=== PATIENT | male | born 1930 | race Caucasian/White ===

== ENCOUNTER 2018-08-13 09:11 | Inpatient (IN) | payer OTHER, MEDICAID ==
[~2018-08-13] VITALS: Ht 167.6 cm; Wt 64.9 kg
[~2018-08-13 09:11] MED LIST: CETI-101 PO; DONE10TA44 PO; FERR1GRA MC; MEMA5TAB PO; METO50TA7 PO; MIRT7.5T11 PO; OMEP20CA10 PO
--- NOTE | 2018-08-13 09:15 | NUR ---
Pt brought in by BLS ambulance C/O left arm pain since this morning. Pt resides at a SNF and staff stated the pt was more difficult to wake up than usual. Staff denies any trauma/ fall and states he is acting normal. Pt has hx of dementia and TIA unable to verbalize pain scale. Pt attached to monitor and will continue to monitor.
--- NOTE | 2018-08-13 09:15 | NUR ---
Placed in room 2.
[2018-08-13 09:17] VITALS: BP_SYST 158
--- NOTE | 2018-08-13 09:30 | NUR ---
ER Dr. May at bedside examining patient.
[2018-08-13 10:21] LABS: ANION GAP 7 (5-15); CALCIUM 8.9 mg/dL (8.4-11.0); CHLORIDE 106 mmol/L (98-107); CREATININE 1.43 mg/dL (0.55-1.30); GLUCOSE 89 mg/dL (70-99); POTASSIUM 4.3 mmol/L (3.5-5.1); SODIUM SERUM 140 mmol/L (136-145); UREA NITROGEN, BLOOD 19 mg/dL (8-21)
[2018-08-13 10:26] LABS: ALANINE AMINOTRANSFERASE 20 U/L (12-78); ALBUMIN 2.8 g/dL (3.4-4.8); ASPARTATE AMINOTRANSFERASE 25 U/L (10-37); TOTAL BILIRUBIN 0.5 mg/dL (0.0-1.0)
[2018-08-13 10:31] LABS: HEMATOCRIT 28.5 % (36-54); HEMOGLOBIN 8.8 g/dL (14.0-18.0); MEAN CORPUSCULAR HEMOGLOBIN 25 pg (27-31); MEAN CORPUSCULAR HGB CONC 31 % (32-36); MEAN CORPUSCULAR VOLUME 81 fL (79.0-98.0); RED BLOOD CELL COUNT(AUTO) 3.52 MIL/uL (4.2-6.2); RED CELL DISTRIBUTION WIDTH 19.4 % (9.0-15.0); WHITE BLOOD COUNT (AUTO) 9.2 K/uL (4.8-10.8)
[2018-08-13] MEDS ORDERED: RANI300T4 PO (10:31)
[2018-08-13] MEDS ORDERED: MOM PO (10:31)
[2018-08-13] MEDS ORDERED: ROSU10TA PO (10:31)
[2018-08-13] MEDS ORDERED: OMEP20CA10 PO (10:31)
[2018-08-13] MEDS ORDERED: DOCU250C71 (10:31)
[2018-08-13] MEDS ORDERED: METO50TA7 PO (10:31)
[2018-08-13] MEDS ORDERED: MIRT15TA7 PO (10:31)
[2018-08-13] MEDS ORDERED: MEMA5TAB PO (10:31)
[2018-08-13] MEDS ORDERED: BISA-79 PO (10:31)
[2018-08-13] MEDS ORDERED: MELA3TAB PO (10:31)
[2018-08-13] MEDS ORDERED: ACET325C4 PO (10:31)
[2018-08-13] MEDS ORDERED: DONE10TA37 PO (10:31)
[2018-08-13 10:34] LABS: PLATELET COUNT (AUTO) 97 K/uL (130-430)
--- NOTE | 2018-08-13 10:45 | NUR ---
Pt is resting quietly, family at bedside. Analia daughter in law gave contact information [phone].
--- NOTE | 2018-08-13 10:59 | NUR ---
ER Dr. May at bedside examining patient and talking with family.
[2018-08-13 11:29] LABS: ATYPICAL LYMPHOCYTES % 0 % (0-0); BAND % (MANUAL) 0 % (0-6); LYMPHOCYTES % (MANUAL) 39 % (20-46); MONOCYTES % (MANUAL) 4 % (0-11)
[2018-08-13 11:30] LABS: BASOPHILS % (MANUAL) 0 % (0-2); EOSINOPHILS % (MANUAL) 34 % (0-7)
--- NOTE | 2018-08-13 11:30 | NUR ---
Pt is becoming agitated and attempting to get out of bed. I attempted to reorient the patient and assisted him back to bed in position of comfort. Bed was lowered. Will continue to monitor, Dr. May informed of situation.
--- NOTE | 2018-08-13 12:30 | NUR ---
Pt is resting quietly in bed, family at bedside with patient. Will continue to monitor.
[2018-08-13] MEDS ORDERED: LORazepam 2 MG/ML VIAL (FOR ER USE) IVP ONE (12:45)
--- NOTE | 2018-08-13 13:30 | NUR ---
Pt's vital signs are stable and does not appear to be in distress at this time. Will continue to monitor pt.
[2018-08-13 13:44] LABS: BILIRUBIN,URINE NEGATIVE (NEGATIVE); BLOOD, URINE NEGATIVE (NEGATIVE); CLARITY/URINE CLEAR (CLEAR); COLOR,URINE YELLOW (YELLOW); GLUCOSE,URINE NEGATIVE (NEGATIVE); KETONES,URINE NEGATIVE (NEGATIVE); LEUKOCYTE ESTERASE ,URINE NEGATIVE (NEGATIVE); NITRITE, URINE NEGATIVE (NEGATIVE); PROTEIN URINE NEGATIVE (NEGATIVE); UROBILINOGEN,URINE 0.2 (0.2-1.0)
--- NOTE | 2018-08-13 14:30 | NUR ---
Pt laying in bed will continue to monitor for any change in condition.
--- NOTE | 2018-08-13 15:30 | NUR ---
ER Dr. May at bedside discussing admission to hospital with patient and family.
--- NOTE | 2018-08-13 15:45 | NUR ---
Admission: Received from ER on a gurney with diagnosis of Altered Level of Consciousness. Asleep when received.
--- NOTE | 2018-08-13 15:50 | NUR ---
Patient will be admitted to care of [facility]. Admitted to telemetry unit. Will go to room 104B. Belongings list completed. Summary report printed. Report will be given at bedside.
--- NOTE | 2018-08-13 15:55 | NUR ---
Notes patient received in stretcher from ER, patient is awake and alert at this time, patient states he is hungry, no signs of distress or pain is noted at this time, assessment completed, family at bedside, safety precautions in place, educated patient and family char conveyor tender light system and plan of care, patient has pacemaker with heart rate of 61, vital signs are stable.
[2018-08-13 16:03] VITALS: BP_SYST 149
[2018-08-13] MEDS ORDERED: BISACODYL 5 MG TABLET.DR (DULCOLAX) PO PRN (17:30)
[2018-08-13] MEDS ORDERED: MILK OF MAGNESIA 30 ML UDC PO PRN (17:30)
--- NOTE | 2018-08-13 17:49 | NUR ---
Cardiac consult called: for Dr. Briseno, regarding hear murmur, ordered by Dr. Renteria, spoke with Alessia.
--- NOTE | 2018-08-13 17:50 | NUR ---
Notes Dr. Renteria at bedside seeing patient, patient is sleeping at this time, IVF started, PICC line infusing well, no signs of distress or pain noted, will continue to monitor, family at bedside, safety precautions in place, bed in lowest position, call light within reach.
--- NOTE | 2018-08-13 17:51 | NUR ---
Neuro consult called: for Dr. Chen, regarding ALOC, ordered by Dr. Renteria, spoke with Marysol.
--- NOTE | 2018-08-13 18:27 | NUR ---
Closing note patient resting in bed, family is at bedside, IVF infusing well, no signs of pain or distress is noted at this time, will endorse report to oncoming nurse, SCDs applied, all needs were met throughout shift, safety precautions in place, bed in lowest position, bed alarm on, call light within reach.
[2018-08-13] MEDS ORDERED: ACETAMINOPHEN 325 MG TABLET PO PRN (19:30)
--- NOTE | 2018-08-13 20:35 | NUR ---
INITIAL NOTE AT INITIAL ASSESSMENT, PATIENT IS RESTING IN BED, STABLE, NO SIGNS OF RESPIRATORY DISTRESS. PATIENT VERBALIZES NO PAIN. PLAN OF CARE FOR THE EVENING IS COMMUNICATED WITH THE PATIENT. CALL LIGHT- TEACH BACK IS SUCCESSFUL. BED IS LOCKED, ALARMED, AND AT THE LOWEST LEVEL. FALL AND SAFETY PRECAUTIONS WILL BE IN PLACE THROUGHOUT THE SHIFT.
[2018-08-13] MEDS ORDERED: ROSUVASTATIN CALCIUM 5 MG/TAB (CRESTOR) PO SCH (21:00)
[2018-08-13] MEDS: DOCUSATE SODIUM 250 MG CAPSULE PO SCH (22:33)
[2018-08-13] MEDS: MEMANTINE HCL 5 MG TABLET PO SCH (22:33)
[2018-08-13] MEDS: DONEPEZIL HCL 5 MG TABLET (ARICEPT) PO SCH (22:33)
[2018-08-13] MEDS: ATORVASTATIN 20 MG TABLET PO SCH (22:33)
[2018-08-13] MEDS: MIRTAZAPINE 15 MG TABLET PO SCH (22:33)
--- NOTE | 2018-08-13 22:33 | NUR ---
NOTE PATIENT IS RESTLESS, STABLE, NO SIGNS OF RESPIRATORY DISTRESS. PATIENT HAS BEEN REQUESTING JELLO, WATER, AND HELP TO PEE. CALL LIGHT WITHIN REACH. BED IS LOCKED, ALARMED, AND AT THE LOWEST LEVEL.
[2018-08-13] MEDS: PANTOPRAZOLE SODIUM 40 MG TAB PO SCH (22:34)
--- NOTE | 2018-08-13 23:40 | NUR ---
BLADDER SCAN BLADDER SCAN SHOWS LESS THAN 300 MLS RETENTION AT THIS TIME, NO RENTERIA PLACEMENT NECESSARY PER MD ORDERS.
--- NOTE | 2018-08-14 00:20 | NUR ---
PATIENT VOMITED NOTE AT THIS TIME, PATIENT HAS THROWN UP, HE IS STILL ANXIOUS AT THIS TIME WELL AND CONTINUES TO YELL FOR MORE TO EAT AND DRINK. MD WILL BE PAGED IMMEDIATELY FOR ORDERS FOR PRN ANXIETY AND NAUSEA. STAFF WILL STAY AT BEDSIDE WITH PATIENT UNTIL PATIENT IS CLEANED, UP, REPOSITIONED, AND NO LONGER ANXIOUS. HE IS STABLE, NO SIGNS OF RESPIRATORY DISTRESS.
--- NOTE | 2018-08-14 00:25 | NUR ---
COMMUNICATION WITH DR. ALF GUEVARA HAS CALLED BACK AT THIS TIME, HE HAS GIVEN ORDERS FOR ZOFRAN 4MG IVP [id number] PRN FOR NAUSEA AND VOMITING, AND ATIVAN 0.5 MG IVP [id number] PRN FOR ANXIETY AND AGITATION. ORDERS WERE READ, BACK, VERIFIED, AND ENTERED. WILL BE ADMINISTERED TO PATIENT SOON PHARMACY HAS APPROVED.
[2018-08-14] MEDS ORDERED: LORazepam 2 MG/ML VIAL IVP PRN (00:30)
[2018-08-14] MEDS ORDERED: ONDANSETRON HCL 4 MG/2 ML VIAL IVP PRN (00:30)
[2018-08-14 00:47] VITALS: BP_SYST 153
[2018-08-14] MEDS: LORazepam 2 MG/ML VIAL IVP PRN ×2 (00:52→20:22)
--- NOTE | 2018-08-14 02:18 | NUR ---
NOTE PATIENT IS RESTING IN BED, STABLE, NO SIGNS OF RESPIRATORY DISTRESS. HE HAS BEEN LESS RESTLESS BUT STILL YELLING AT TIMES FOR HELP WITH URINAL INSTEAD OF USING BED ALARM.BED IS LOCKED, ALARMED, AND AT THE LOWEST LEVEL.
--- NOTE | 2018-08-14 02:49 | NUR ---
OPENING NOTE RECEIVED PT REPORT FROM DAY SHIFT NURSE AT BEDSIDE. FAMILY AT BEDSIDE. PT IS AOX2, RESTING IN BED WITH EYES OPEN. CHEST RISE EVEN AND UNLABORED. NO SOB NOTED, NO DISTRESS NOTED. NO COMPLAINTS OF PAIN AT THIS TIME. PT IS [place] AND SPEAKS MOSTLY [place]OD[place]ISM, ABLE TO UNDERSTAND SOME [place] AND ABLE TO RESPOND PRETTY WELL. PT HAS ADIS PICC LINE, IVF INFUSING WELL. IV CLEAN, DRY AND INTACT. SKIN IS CLEAN, DRY AND INTACT. URINAL AT BEDSIDE. PT TRIES TO GET OUT OF BED AT TIMES, FAMILY WAS ABLE TO SPEAK TO PT AND REINFORCE PT SAFETY AND USE OF BED ALARM AND CALL LIGHT. PT AND FAMILY EDUCATE ON SAFETY MEASURES. PT ORIENTED TO HOSPITAL ROOM, PT VERBALIZED UNDERSTANDING. PT INSTRUCTED HOW TOT USE CALL LIGHT AND ROOM PHONE TO CALL FOR ASSISTANCE. PT VERBALIZED UNDERSTANDING. SAFETY MEASURES IN PLACE. CALL LIGHT AND ROOM PHONE WITHIN REACH, BED IN LOWEST POSITION, BED RAILS UP X3, BED ALARM ON, BEDSIDE TABLE WITHIN REACH, BED WHEELS LOCKED. NO NEEDS AT THIS TIME. WILL MONITOR PT AND CONTINUE POC.
[2018-08-14] MEDS: D5/0.45 NS 1,000 ML IV SCH ×3 (03:30→23:31)
--- NOTE | 2018-08-14 04:15 | NUR ---
NOTE PATIENT IS SLEEPING, STABLE, NO SIGNS OF RESPIRATORY DISTRESS. CALL LIGHT WITHIN REACH. BED IS LOCKED, ALARMED, AND AT THE LOWEST LEVEL.
--- NOTE | 2018-08-14 05:41 | NUR ---
NOTE PATIENT IS SLEEPING, STABLE, NO SIGNS OF RESPIRATORY DISTRESS. CALL LIGHT WITHIN REACH. BED IS LOCKED, ALARMED, AND AT THE LOWEST LEVEL.
--- NOTE | 2018-08-14 06:42 | NUR ---
CLOSING NOTE PATIENT IS SLEEPING, STABLE, NO SIGNS OF RESPIRATORY DISTRESS. CALL LIGHT WITHIN REACH. BED IS LOCKED, ALARMED, AND AT THE LOWEST LEVEL. FALL AND SAFETY PRECAUTIONS HAVE BEEN IN PLACE THROUGHOUT THE SHIFT. WILL CONTINUE TO MONITOR UNTIL SHIFT REPORT IS GIVEN AT BEDSIDE TO AM NURSE.
--- NOTE | 2018-08-14 07:54 | NUR ---
AM notes Received report. Patient is sleeping in bed. Breathing is even and unlabored on room air. Shows no signs of distress. Bed is in the lowest position, bed alarm is on, and call light is with the patient.
[2018-08-14 08:00] VITALS: BP_SYST 113
[2018-08-14 08:13] LABS: ALANINE AMINOTRANSFERASE 20 U/L (12-78); ALBUMIN 2.5 g/dL (3.4-4.8); ANION GAP 7 (5-15); ASPARTATE AMINOTRANSFERASE 31 U/L (10-37); CHLORIDE 105 mmol/L (98-107); FREE T4 (FREE THYROXINE) 0.5 ng/dL (0.6-1.6); GLUCOSE 115 mg/dL (70-99); POTASSIUM 4.2 mmol/L (3.5-5.1); SODIUM SERUM 138 mmol/L (136-145); THYROID STIMULATING HORMONE 0.96 uIu/mL (0.34-4.82); TOTAL BILIRUBIN 0.5 mg/dL (0.0-1.0); UREA NITROGEN, BLOOD 20 mg/dL (8-21)
[2018-08-14 08:25] LABS: BASOPHILS % (AUTO) 0.3 % (0.0-2.0); EOSINOPHILS # (AUTO) 2.7 K/uL (0.0-0.4); HEMOGLOBIN 8.4 g/dL (14.0-18.0)
[2018-08-14 08:32] LABS: EOSINOPHILS % (AUTO) 27.4 % (0.0-4.0); HEMATOCRIT 27.1 % (36-54); LYMPHOCYTES # (AUTO) 3.6 K/uL (1.0-5.5); LYMPHOCYTES % (AUTO) 36.9 % (20.5-51.5); MEAN CORPUSCULAR HEMOGLOBIN 25 pg (27-31); MEAN CORPUSCULAR HGB CONC 31 % (32-36); MEAN CORPUSCULAR VOLUME 81 fL (79.0-98.0); MONOCYTES # (AUTO) 0.8 K/uL (0.0-1.0); NEUTROPHILS # (AUTO) 2.7 K/uL (1.8-7.7); PLATELET COUNT (AUTO) 87 K/uL (130-430); RED BLOOD CELL COUNT(AUTO) 3.33 MIL/uL (4.2-6.2); RED CELL DISTRIBUTION WIDTH 19.7 % (9.0-15.0); WHITE BLOOD COUNT (AUTO) 9.8 K/uL (4.8-10.8)
[2018-08-14 08:34] LABS: TOTAL IRON BIND. CAPACITY 305 ug/dL (250-450)
[2018-08-14] MEDS ORDERED: OMEPRAZOLE 20 MG CAPSULE.DR (PriLOSEC) PO SCH (09:00)
[2018-08-14] MEDS: FAMOTIDINE 20 MG TABLET PO SCH (09:14)
[2018-08-14] MEDS: DOCUSATE SODIUM 250 MG CAPSULE PO SCH ×2 (09:14→20:22)
[2018-08-14] MEDS: MEMANTINE HCL 5 MG TABLET PO SCH ×2 (09:14→20:22)
[2018-08-14] MEDS: NEPHROVITE, (FOLIC ACID/VITAMIN B COMP W-C 1 TAB) PO SCH (09:15)
[2018-08-14] MEDS: METOPROLOL SUCCINATE 50 MG TAB.SR.24H (TOPROL XL) PO SCH (09:15)
[2018-08-14] MEDS: TAMSULOSIN HCL 0.4 MG CAP PO SCH (09:15)
--- NOTE | 2018-08-14 09:18 | NUR ---
PO meds PO meds given. Patient tolerated well. No signs of allergic reaction.
--- NOTE | 2018-08-14 10:06 | NUR ---
Nutrition Update Domo Scale 18 noted. Pt admitted for ALOC. Diet: pureed BMI: 23.1 kg/m2 RD to follow per nutrition care standards.
--- NOTE | 2018-08-14 11:24 | NUR ---
SS NOTE ASSISTANT PROFESSOR OF ECONOMICS met with patient who has some dementia. Unable to do a D/C assessment and no family present at bedside. ASSISTANT PROFESSOR OF ECONOMICS will follow up when family present.
[2018-08-14 12:00] VITALS: BP_SYST 133
--- NOTE | 2018-08-14 12:10 | NUR ---
RN rounds Patient sleeping in bed. Shows no signs of distress. Breathing is even and unlabored. Bed is in the lowest position, call light is with the patient, bed alarm is on, side rails up x3.
[2018-08-14 12:31] LABS: NEUTROPHILS % (AUTO) 27.4 % (40.0-70.0)
--- NOTE | 2018-08-14 14:49 | NUR ---
RN rounds Patient is resting comfortably in bed eating pudding. Does not show any signs of distress. Family is at the bedside. Educated the family to use the call light if they need anything. Bed is in the lowest position, side rails up x3, bed alarm is on, call light is with the patient.
[2018-08-14 16:16] VITALS: BP_SYST 143
--- NOTE | 2018-08-14 17:00 | NUR ---
RN rounds Patient is resting comfortably in bed. Shows no signs of distress. Family is at the bedside.
[2018-08-14] MEDS: SOD FERRIC GLUC COMPLEX/SUC 125 MG in NS 100 ML IV SCH (18:33)
--- NOTE | 2018-08-14 18:54 | NUR ---
Closing notes Patient is talking with family. Family are at the bedside. Patient shows no signs of distress. Breathing is even and unlabored on room air. Practice guidelines met throughout the shift. Bed is in the lowest position, bed alarm is on, side rails up x3, call light is with the patient.
--- NOTE | 2018-08-14 19:10 | NUR ---
OPENING NOTE RECEIVED PT REPORT FROM DAY SHIFT NURSE AT BEDSIDE. FAMILY AT BEDSIDE. PT IS AOX2, RESTING IN BED WITH EYES OPEN. CHEST RISE EVEN AND UNLABORED. NO SOB NOTED, NO DISTRESS NOTED. NO COMPLAINTS OF PAIN AT THIS TIME. PT IS [place] AND SPEAKS MOSTLY [place]ISM, ABLE TO UNDERSTAND SOME [place]PPER [place] AND ABLE TO RESPOND PRETTY WELL. PT HAS ADIS PICC LINE, IVF INFUSING WELL. IV CLEAN, DRY AND INTACT. SKIN IS CLEAN, DRY AND INTACT. URINAL AT BEDSIDE. PT TRIES TO GET OUT OF BED AT TIMES, FAMILY WAS ABLE TO SPEAK TO PT AND REINFORCE PT SAFETY AND USE OF BED ALARM AND CALL LIGHT. PT AND FAMILY EDUCATE ON SAFETY MEASURES. PT ORIENTED TO HOSPITAL ROOM, PT VERBALIZED UNDERSTANDING. PT INSTRUCTED HOW TOT USE CALL LIGHT AND ROOM PHONE TO CALL FOR ASSISTANCE. PT VERBALIZED UNDERSTANDING. SAFETY MEASURES IN PLACE. CALL LIGHT AND ROOM PHONE WITHIN REACH, BED IN LOWEST POSITION, BED RAILS UP X3, BED ALARM ON, BEDSIDE TABLE WITHIN REACH, BED WHEELS LOCKED. NO NEEDS AT THIS TIME. WILL MONITOR PT AND CONTINUE POC.
[2018-08-14 20:21] VITALS: BP_SYST 104
[2018-08-14] MEDS: DONEPEZIL HCL 5 MG TABLET (ARICEPT) PO SCH (20:21)
[2018-08-14] MEDS: MULTIVITAMINS TAB 1 TABLET PO SCH (20:22)
[2018-08-14] MEDS: PANTOPRAZOLE SODIUM 40 MG TAB PO SCH (20:22)
[2018-08-14] MEDS: MIRTAZAPINE 15 MG TABLET PO SCH (20:22)
[2018-08-14] MEDS: ATORVASTATIN 20 MG TABLET PO SCH (20:22)
--- NOTE | 2018-08-14 20:23 | NUR ---
RN ROUNDS PT RESTING IN BED WITH EYES OPEN. CHEST RISE EVEN AND UNLABORED. NO SOB NOTED, NO DISTRESS NOTED. NO COMPLAINTS OF PAIN AT THIS TIME. IVF INFUSING WELL. VITAL SIGNS WNL. SCHEDULED MEDICATIONS ADMINISTERED ORDERED , TP TOLERATED WELL. PT BECOMING INCREASINGLY AGITATED AND TRYING TO CLIMB OUT OF BED. PRN ATIVAN IVP ADMINISTERED ORDERED FOR AGITATION, PT TOLERATED WELL. WILL CONTINUE TO MONITOR PT. SAFETY MEASURES IN PLACE. CALL LIGHT AND ROOM PHONE WITHIN REACH, BED IN LOWEST POSITION, BED RAILS UP X3, BED ALARM ON, BEDSIDE TABLE WITHIN REACH, BED WHEELS LOCKED. NO OTHER NEEDS AT THIS TIME. WILL MONITOR PT AND CONTINUE POC.
--- NOTE | 2018-08-14 22:00 | NUR ---
RN ROUNDS PT CONTINUES TO TRY TO CLIMB PUT OF BED, PT REORIENTED TO HOSPITAL ROOM AND INSTRUCTED TO STAY IN BED.
--- NOTE | 2018-08-14 23:19 | NUR ---
PAGED AND CALLED NEW ORDER HALDOL 2 MG IM NOW FOR AGITATION SEROQUEL 25 MG PO NOW FOR AGITATION
[2018-08-14] MEDS ORDERED: QUEtiapine FUMARATE 25 MG TABLET PO ONE (23:30)
[2018-08-14] MEDS ORDERED: HALOPERIDOL LACTATE 5 MG/ML VIAL IM ONE (23:30)
--- NOTE | 2018-08-14 23:30 | NUR ---
RN ROUNDS PT RESTING IN BED. CHEST RISE EVEN AND UNLABORED. ONE TIME ORDER OF HALDOL AND SEROQUEL ADMINISTERED ORDERED FOR AGITATION, PT TOLERATED WELL. WILL CONTINUE TO MONITOR PT. INSTRUCTED PT TO STAY IN BED AND CALL FOR ASSISTANCE. SAFETY MEASURES IN PLACE. CALL LIGHT AND ROOM PHONE WITHIN REACH, BED IN LOWEST POSITION, BED RAILS UP X3, BED ALARM ON, BEDSIDE TABLE WITHIN REACH, BED WHEELS LOCKED. NO OTHER NEEDS AT THIS TIME. WILL MONITOR PT AND CONTINUE POC.
[2018-08-15 00:36] VITALS: BP_SYST 126
--- NOTE | 2018-08-15 02:06 | NUR ---
RN ROUNDS ' PT RESTING IN BED WITH EYES OPEN. CHEST RISE EVEN AND UNLABORED. NO SOB NOTED, NO DISTRESS NOTED. NO COMPLAINTS OF PAIN AT THIS TIME. PT REORIENTED TO HOSPITAL ROOM, PT VERBALIZES UNDERSTANDING. WILL COTINUE TO MNOITOR PT. PT CONTINUES TO TRY TO CLIMB OUT OF BED. FAMILY CALLED AND MESSAGE LEFT. SAFETY MEASURES IN PLACE. CALL LIGHT AND ROOM PHONE WITHIN REACH, BED IN LOWEST POSITION, BED RAILS UP X3, BED ALARM ON, BEDSIDE TABLE WITHIN REACH, BED WHEELS LOCKED. NO NEEDS AT THIS TIME. WILL MONITOR PT AND CONTINUE POC.
--- NOTE | 2018-08-15 03:07 | NUR ---
RN ROUNDS PT RESTING IN BED WITH EYES CLOSED. CHEST RISE EVEN AND UNLABORED. NO SOB NOTED, NO DISTRESS NOTED. SAFETY MEASURES IN PLACE. CALL LIGHT AND ROOM PHONE WITHIN REACH, BED IN LOWEST POSITION, BED RAILS UP X3, BED ALARM ON, BEDSIDE TABLE WITHIN REACH, BED WHEELS LOCKED. NO NEEDS AT THIS TIME. WILL MONITOR PT AND CONTINUE POC.
[2018-08-15 07:09] LABS: BASOPHILS % (AUTO) 0.3 % (0.0-2.0); EOSINOPHILS # (AUTO) 2.4 K/uL (0.0-0.4); EOSINOPHILS % (AUTO) 26.6 % (0.0-4.0); HEMATOCRIT 24.8 % (36-54); HEMOGLOBIN 7.8 g/dL (14.0-18.0); LYMPHOCYTES # (AUTO) 3.5 K/uL (1.0-5.5); LYMPHOCYTES % (AUTO) 37.5 % (20.5-51.5); MEAN CORPUSCULAR HEMOGLOBIN 25 pg (27-31); MEAN CORPUSCULAR HGB CONC 31 % (32-36); MEAN CORPUSCULAR VOLUME 80 fL (79.0-98.0); MONOCYTES # (AUTO) 0.7 K/uL (0.0-1.0); MONOCYTES % (AUTO) 8.2 % (1.7-9.3); NEUTROPHILS # (AUTO) 2.5 K/uL (1.8-7.7); NEUTROPHILS % (AUTO) 27.4 % (40.0-70.0); RED BLOOD CELL COUNT(AUTO) 3.09 MIL/uL (4.2-6.2)
[2018-08-15 07:21] LABS: WHITE BLOOD COUNT (AUTO) 9.1 K/uL (4.8-10.8)
[2018-08-15 07:29] LABS: ANION GAP 5 (5-15); CALCIUM 8.6 mg/dL (8.4-11.0); CHLORIDE 107 mmol/L (98-107); CREATININE 1.29 mg/dL (0.55-1.30); GLUCOSE 101 mg/dL (70-99); POTASSIUM 4.1 mmol/L (3.5-5.1); SODIUM SERUM 139 mmol/L (136-145); UREA NITROGEN, BLOOD 21 mg/dL (8-21)
--- NOTE | 2018-08-15 07:35 | NUR ---
CLOSING NOTE ENDORSED PT REPORT TO DAY SHIFT NURSE EMMA AT BEDSIDE. PT IS AOX1, RESTING IN BED WITH EYES OPEN. CHEST RISE EVEN AND UNLABORED. NO SOB NOTED, NO DISTRESS NOTED. NO COMPLAINTS OF PAIN AT THIS TIME. IVF INFUSING WELL. IV CLEAN, DRY AND INTACT. PT'S NEEDS MET THROUGHOUT SHIFT. ALL SCHEDULED MEDICATIONS ADMINISTERED ORDERED, PT TOLERATED WELL. SAFETY MEASURES IN PLACE. CALL LIGHT AND ROOM PHONE WITHIN REACH, BED IN LOWEST POSITION, BED RAILS UP X3, BED ALARM ON, BEDSIDE TABLE WITHIN REACH, BED WHEELS LOCKED. PT CARE ENDORSED TO DAY SHIFT.
[2018-08-15 08:00] VITALS: BP_SYST 124
--- NOTE | 2018-08-15 08:00 | NUR ---
AM ASSESSMENT. APPROACHED PT, SLEEPING AT THIS HOUR, IVF INFUSING D51/2 NS AT 100 ML PER HR, MARKETING MANAGER ON SINUS, HEART RATE 58 TO 71, WILL CONTINUE TO MONITOR PT.
[2018-08-15 09:07] VITALS: BP_SYST 132
--- NOTE | 2018-08-15 09:07 | NUR ---
WOKE PT UP. DR ARELLANO AT BEDSIDE, EXAMINED PT. PT ASKED HELP IN USING THE BATHROOM, URINAL PROVIDED AND HE VOIDED WITH 300 ML URINE. TRAY SERVED FOR HIS BREAKFAST, PT EAGER TO REACH FOR UTENSILS TO BEGIN DINING.
[2018-08-15] MEDS: FAMOTIDINE 20 MG TABLET PO SCH (09:37)
[2018-08-15] MEDS: DOCUSATE SODIUM 250 MG CAPSULE PO SCH (09:37)
[2018-08-15] MEDS: MULTIVITAMINS TAB 1 TABLET PO SCH (09:37)
[2018-08-15] MEDS: MEMANTINE HCL 5 MG TABLET PO SCH (09:37)
[2018-08-15] MEDS: TAMSULOSIN HCL 0.4 MG CAP PO SCH (09:37)
[2018-08-15] MEDS: NEPHROVITE, (FOLIC ACID/VITAMIN B COMP W-C 1 TAB) PO SCH (09:37)
[2018-08-15] MEDS: METOPROLOL SUCCINATE 50 MG TAB.SR.24H (TOPROL XL) PO SCH (09:37)
[2018-08-15] MEDS: D5/0.45 NS 1,000 ML IV SCH (09:38)
[2018-08-15 10:11] LABS: PLATELET COUNT (AUTO) 80 K/uL (130-430)
--- NOTE | 2018-08-15 12:00 | NUR ---
Discharge Planning: DCP faxed pt referral to [facility] ( p [phone]);DCP to follow up Addendum: 08/15/18 at 1410 by Felicia Hinton DP Noah at [facility] (f [phone] p [phone]) accepted pt to room 25B Addendum: 08/15/18 at 1552 by Felicia Hinton DP DCP arranged transportation with [facility] ([phone]) 7:00pm P/U, Nurse to nurse ([phone]). Pt packet at nurse station.
[2018-08-15 12:51] VITALS: BP_SYST 114
--- NOTE | 2018-08-15 13:05 | NUR ---
REPORT. ENDORSED CARE TO SABINO MOLINA.
--- NOTE | 2018-08-15 13:06 | NUR ---
TRANSFER OF CARE REPORT IS RECEIVED FROM EMMA AND CARE IS ENDORSED TO MYSELF. PT IS RECEIVED AWAKE AND ALERT, WATCHING TV AND EATING LUNCH. NO SIGNS OR SYMPTOMS OF DISTRESS OR SOB NOTED. WHITE BOARD IS UPDATED AND PLAN OF CARE IS DISCUSSED. CURRENT NEEDS ARE MET. BED IS AT LOWEST POSITION, CALL LIGHT WITHIN REACH, THREE SIDE RAILS UP, BED ALARM IS ON. WILL CONTINUE TO MONITOR.
--- NOTE | 2018-08-15 14:51 | NUR ---
ROUNDS PT IS AWAKE AND ALERT. NO SIGNS OR SYMPTOMS OF DISTRESS OR SOB NOTED. CURRENT NEEDS ARE MET. BED IS AT LOWEST POSITION, CALL LIGHT WITHIN REACH, THREE SIDE RAILS UP, BED ALARM IS ON. WILL CONTINUE TO MONITOR.
--- NOTE | 2018-08-15 16:18 | NUR ---
ROUNDS PT IS AWAKE AND ALERT. FAMILY IS AT BEDSIDE. NO SIGNS OR SYMPTOMS OF DISTRESS OR SOB NOTED. FAMILY IS AWARE THAT PT WILL BE TRANSFERRED BACK [facility] THIS EVENING. CURRENT NEEDS ARE MET. BED IS AT LOWEST POSITION, CALL LIGHT WITHIN REACH, THREE SIDE RAILS UP, BED ALARM IS ON. WILL CONTINUE TO MONITOR.
[2018-08-15 16:34] VITALS: BP_SYST 115
[2018-08-15 17:26] VITALS: BP_SYST 115
[2018-08-15] MEDS: SOD FERRIC GLUC COMPLEX/SUC 125 MG in NS 100 ML IV SCH (17:55)
--- NOTE | 2018-08-15 18:38 | NUR ---
PT TRANSFERRED Report given to LULU at [facility]. Transfer packet with Transfer Orders and Medication Reconciliation form given to EMT with report. Exitcare provided. [facility] ID band removed, replaced with ID band with pt's name and . All belongings sent with patient. Patient left floor via gurney escorted by EMT in no distress.
== END 2018-08-15 18:39 | DRG 70 ==
LOC: SED 09:11 → STU 15:30
PROVIDERS: ADMIT Internal Medicine; ATTEND Internal Medicine
DX: G93.41 Metabolic encephalopathy (principal); D61.810 Antineoplastic chemotherapy induced pancytopenia; E43 Unspecified severe protein-calorie malnutrition; N17.0 Acute kidney failure with tubular necrosis; C85.90 Non-Hodgkin lymphoma, unspecified, unspecified site; E78.5 Hyperlipidemia, unspecified; F03.90 Unspecified dementia, unspecified severity, without behavioral disturbance, psychotic disturbance, mood disturbance, and anxiety; I12.9 Hypertensive chronic kidney disease with stage 1 through stage 4 chronic kidney disease, or unspecified chronic kidney disease; T45.1X5A Adverse effect of antineoplastic and immunosuppressive drugs, initial encounter; N18.9 Chronic kidney disease, unspecified; K21.9 Gastro-esophageal reflux disease without esophagitis; M19.019 Primary osteoarthritis, unspecified shoulder; H54.7 Unspecified visual loss; E86.0 Dehydration; Z95.0 Presence of cardiac pacemaker; Z97.0 Presence of artificial eye; Z86.73 Personal history of transient ischemic attack (TIA), and cerebral infarction without residual deficits; Y92.89 Other specified places as the place of occurrence of the external cause; Z79.899 Other long term (current) drug therapy; Z68.23 Body mass index [BMI] 23.0-23.9, adult
CPT/HCPCS: 36415; 70450-TC; 71045; 73060-TC; 80048; 80053; 81003; 82607; 82962; 83540-TC; 83550-TC; 84439; 84443-TC; 84484; 85007; 85025; 85027; 87081; 90656; 93005; 93306; 96374; 99291; J1630; J2060; J2405; J2916

== ENCOUNTER 2019-03-03 04:42 | Inpatient (IN) | payer OTHER, MEDICAID ==
[~2019-03-03] VITALS: Ht 167.6 cm; Wt 62.1 kg
[2019-03-03 04:42] VITALS: BP_SYST 168
[~2019-03-03 04:42] MED LIST changes: +ACET325C4 PO; +BISA-79 PO; -CETI-101 PO; +DOCU250C71; +DONE10TA37 PO; -DONE10TA44 PO; -FERR1GRA MC; +MELA3TAB PO; +MIRT15TA7 PO; -MIRT7.5T11 PO; +MOM PO; +RANI300T4 PO; +ROSU10TA PO
[2019-03-03] MEDS ORDERED: KETOROLAC TROMETHAMINE 30 MG VIAL IVP ONE (05:15)
[2019-03-03] MEDS ORDERED: NACL 0.9% 1,000 ML IV ONE (05:15)
[2019-03-03] MEDS ORDERED: TAMS-11 PO (05:31)
[2019-03-03] MEDS ORDERED: FAMO20TA8 PO (05:32)
[2019-03-03] MEDS ORDERED: LIP20 PO (05:32)
[2019-03-03] MEDS ORDERED: POTA20LI4 PO (05:34)
[2019-03-03] MEDS ORDERED: DOCU-144 PO (05:35)
[2019-03-03] MEDS ORDERED: LORazepam 2 MG/ML VIAL (FOR ER USE) IVP ONE (06:00)
[2019-03-03 06:41] LABS: HEMOGLOBIN 9.2 g/dL (14.0-18.0); LYMPHOCYTES # (AUTO) 0.6 K/uL (1.0-5.5); NEUTROPHILS # (AUTO) 5.2 K/uL (1.8-7.7)
[2019-03-03 06:56] LABS: BASOPHILS % (AUTO) 0.6 % (0.0-2.0); HEMATOCRIT 28.3 % (36-54); LYMPHOCYTES % (AUTO) 10.1 % (20.5-51.5); MEAN CORPUSCULAR HEMOGLOBIN 28 pg (27-31); MEAN CORPUSCULAR HGB CONC 33 % (32-36); MEAN CORPUSCULAR VOLUME 87 fL (79.0-98.0); MONOCYTES # (AUTO) 0.1 K/uL (0.0-1.0); MONOCYTES % (AUTO) 2.3 % (1.7-9.3); RED BLOOD CELL COUNT(AUTO) 3.26 MIL/uL (4.2-6.2); RED CELL DISTRIBUTION WIDTH 17.9 % (9.0-15.0)
[2019-03-03 07:03] LABS: ANION GAP 14 (5-15); CALCIUM 8.2 mg/dL (8.4-11.0); CHLORIDE 104 mmol/L (98-107); CREATININE 1.41 mg/dL (0.55-1.30); GLUCOSE 201 mg/dL (70-99); POTASSIUM 4.3 mmol/L (3.5-5.1); SODIUM SERUM 139 mmol/L (136-145); UREA NITROGEN, BLOOD 17 mg/dL (8-21)
[2019-03-03 07:04] LABS: INR 1.1 (0.80-1.20); PROTHROMBIN TIME 11.1 SECS (9.5-12.5)
[2019-03-03 07:10] LABS: ALANINE AMINOTRANSFERASE 18 U/L (12-78); ALBUMIN 2.9 g/dL (3.4-4.8); ASPARTATE AMINOTRANSFERASE 24 U/L (10-37); TOTAL BILIRUBIN 0.8 mg/dL (0.0-1.0)
[2019-03-03 07:37] LABS: PLATELET COUNT (AUTO) 57 K/uL (130-430)
[2019-03-03 08:37] VITALS: BP_SYST 158
[2019-03-03] MEDS: NACL 0.9% 1,000 ML IV SCH (09:41)
[2019-03-03] MEDS ORDERED: HALOPERIDOL LACTATE 5 MG/ML VIAL IM ONE (14:30)
[2019-03-03 14:52] LABS: HEMATOCRIT 29.2 % (36-54); HEMOGLOBIN 9.4 g/dL (14.0-18.0)
[2019-03-03 16:30] VITALS: BP_SYST 141
[2019-03-03 20:00] VITALS: BP_SYST 143
[2019-03-03 23:21] VITALS: BP_SYST 138
[2019-03-04] MEDS: HALOPERIDOL LACTATE 5 MG/ML VIAL IM PRN ×2 (00:32→20:03)
[2019-03-04] MEDS: NACL 0.9% 1,000 ML IV SCH (01:47)
[2019-03-04 08:42] VITALS: BP_SYST 121
[2019-03-04 11:21] LABS: BASOPHILS # (AUTO) 0.1 K/uL (0.0-0.2); BASOPHILS % (AUTO) 1.1 % (0.0-2.0); EOSINOPHILS # (AUTO) 0.1 K/uL (0.0-0.4); HEMATOCRIT 23.7 % (36-54); HEMOGLOBIN 7.6 g/dL (14.0-18.0); LYMPHOCYTES # (AUTO) 1.5 K/uL (1.0-5.5); LYMPHOCYTES % (AUTO) 22.9 % (20.5-51.5); MEAN CORPUSCULAR HEMOGLOBIN 28 pg (27-31); MEAN CORPUSCULAR HGB CONC 32 % (32-36); MEAN CORPUSCULAR VOLUME 88 fL (79.0-98.0); MONOCYTES # (AUTO) 0.7 K/uL (0.0-1.0); MONOCYTES % (AUTO) 10.1 % (1.7-9.3); NEUTROPHILS # (AUTO) 4.4 K/uL (1.8-7.7); NEUTROPHILS % (AUTO) 64.9 % (40.0-70.0); RED CELL DISTRIBUTION WIDTH 19.1 % (9.0-15.0); WHITE BLOOD COUNT (AUTO) 6.7 K/uL (4.8-10.8)
[2019-03-04] MEDS: D5NS 1,000 ML IV SCH ×2 (11:48→20:04)
[2019-03-04 11:49] LABS: ANION GAP 10 (5-15); CALCIUM 8.4 mg/dL (8.4-11.0); CHLORIDE 109 mmol/L (98-107); CREATININE 1.47 mg/dL (0.55-1.30); GLUCOSE 81 mg/dL (70-99); SODIUM SERUM 142 mmol/L (136-145); UREA NITROGEN, BLOOD 22 mg/dL (8-21)
[2019-03-04 11:55] LABS: ALANINE AMINOTRANSFERASE 15 U/L (12-78); ALBUMIN 2.6 g/dL (3.4-4.8); ASPARTATE AMINOTRANSFERASE 23 U/L (10-37); TOTAL BILIRUBIN 0.7 mg/dL (0.0-1.0)
[2019-03-04 12:14] VITALS: BP_SYST 118
[2019-03-04 12:21] LABS: PLATELET COUNT (AUTO) 46 K/uL (130-430)
[2019-03-04 17:05] VITALS: BP_SYST 117
[2019-03-04 20:00] VITALS: BP_SYST 139
[2019-03-04] MEDS: ATORVASTATIN 20 MG TABLET PO SCH (21:00)
[2019-03-04] MEDS: DONEPEZIL HCL 5 MG TABLET (ARICEPT) PO SCH (21:00)
[2019-03-04] MEDS: MEMANTINE HCL 5 MG TABLET PO SCH (21:00)
[2019-03-05 00:14] VITALS: BP_SYST 122; BP_SYST 136
[2019-03-05] MEDS: D5NS 1,000 ML IV SCH ×2 (05:40→16:30)
[2019-03-05 08:00] VITALS: BP_SYST 117
[2019-03-05] MEDS: DOCUSATE SODIUM 100 MG CAPSULE PO SCH (09:00)
[2019-03-05] MEDS: FAMOTIDINE 20 MG TABLET PO SCH (09:05)
[2019-03-05] MEDS: METOPROLOL SUCCINATE 50 MG TAB.SR.24H (TOPROL XL) PO SCH (09:05)
[2019-03-05] MEDS: MEMANTINE HCL 5 MG TABLET PO SCH ×2 (09:05→20:15)
[2019-03-05] MEDS: TAMSULOSIN HCL 0.4 MG CAP PO SCH (09:05)
[2019-03-05 13:02] VITALS: BP_SYST 100
[2019-03-05 16:47] VITALS: BP_SYST 134
[2019-03-05] MEDS: HALOPERIDOL LACTATE 5 MG/ML VIAL IM PRN (19:56)
[2019-03-05] MEDS: ATORVASTATIN 20 MG TABLET PO SCH (20:14)
[2019-03-05] MEDS: DONEPEZIL HCL 5 MG TABLET (ARICEPT) PO SCH (20:15)
[2019-03-05 20:23] VITALS: BP_SYST 94
[2019-03-05 23:37] VITALS: BP_SYST 96
[2019-03-06] MEDS: D5NS 1,000 ML IV SCH ×2 (04:24→13:00)
[2019-03-06 08:30] VITALS: BP_SYST 94
[2019-03-06] MEDS: TAMSULOSIN HCL 0.4 MG CAP PO SCH (08:57)
[2019-03-06] MEDS: FAMOTIDINE 20 MG TABLET PO SCH (08:57)
[2019-03-06] MEDS: MEMANTINE HCL 5 MG TABLET PO SCH (08:57)
[2019-03-06] MEDS: DOCUSATE SODIUM 100 MG CAPSULE PO SCH (08:57)
[2019-03-06] MEDS: METOPROLOL SUCCINATE 50 MG TAB.SR.24H (TOPROL XL) PO SCH (08:58)
[2019-03-06 12:31] VITALS: BP_SYST 91
[2019-03-06 14:16] VITALS: BP_SYST 91
== END 2019-03-06 14:12 | DRG 696 ==
LOC: SED 04:42 → SMU 08:07
PROVIDERS: ADMIT Internal Medicine Hospice and Palliative Medicine; ATTEND Internal Medicine Hospice and Palliative Medicine
DX: R33.8 Other retention of urine (principal); C85.90 Non-Hodgkin lymphoma, unspecified, unspecified site; S37.29XA Other injury of bladder, initial encounter; E44.0 Moderate protein-calorie malnutrition; D69.6 Thrombocytopenia, unspecified; F02.80 Dementia in other diseases classified elsewhere, unspecified severity, without behavioral disturbance, psychotic disturbance, mood disturbance, and anxiety; G30.9 Alzheimer's disease, unspecified; N40.1 Benign prostatic hyperplasia with lower urinary tract symptoms; D50.9 Iron deficiency anemia, unspecified; D46.9 Myelodysplastic syndrome, unspecified; X58.XXXA Exposure to other specified factors, initial encounter; I12.9 Hypertensive chronic kidney disease with stage 1 through stage 4 chronic kidney disease, or unspecified chronic kidney disease; N18.9 Chronic kidney disease, unspecified; Z92.21 Personal history of antineoplastic chemotherapy; Z79.899 Other long term (current) drug therapy; Z95.0 Presence of cardiac pacemaker; Z86.73 Personal history of transient ischemic attack (TIA), and cerebral infarction without residual deficits; Y93.89 Activity, other specified; Y92.89 Other specified places as the place of occurrence of the external cause; Y99.8 Other external cause status
CPT/HCPCS: 36415; 80053; 85018-TC; 85025; 85610-TC; 85730-TC; 87081; 92610-GN; 96361; 96374; 96375; 97116-GP; 97530-GP; 99285; J1630; J1885; J2060; J7030; J7042

== ENCOUNTER 2019-03-06 16:27 | Inpatient (IN) | payer OTHER, MEDICAID ==
[~2019-03-06] VITALS: Ht 167.6 cm; Wt 64.0 kg
[2019-03-06 16:27] VITALS: BP_SYST 104
[~2019-03-06 16:27] MED LIST changes: -ACET325C4 PO; -BISA-79 PO; +DOCU-144 PO; -DOCU250C71; +FAMO20TA8 PO; +LIP20 PO; -MELA3TAB PO; -MIRT15TA7 PO; -MOM PO; -OMEP20CA10 PO; +POTA20LI4 PO; -RANI300T4 PO; -ROSU10TA PO; +TAMS-11 PO
[2019-03-06] MEDS ORDERED: NS 500 ML IV ONE (16:45)
[2019-03-06 17:29] LABS: BASOPHILS % (AUTO) 0.9 % (0.0-2.0); EOSINOPHILS # (AUTO) 0.2 K/uL (0.0-0.4); EOSINOPHILS % (AUTO) 3.8 % (0.0-4.0); LYMPHOCYTES # (AUTO) 2.4 K/uL (1.0-5.5); LYMPHOCYTES % (AUTO) 40.4 % (20.5-51.5); MEAN CORPUSCULAR HEMOGLOBIN 29 pg (27-31); MEAN CORPUSCULAR HGB CONC 32 % (32-36); MEAN CORPUSCULAR VOLUME 90 fL (79.0-98.0); MONOCYTES # (AUTO) 0.6 K/uL (0.0-1.0); MONOCYTES % (AUTO) 10.5 % (1.7-9.3); NEUTROPHILS # (AUTO) 2.6 K/uL (1.8-7.7); PLATELET COUNT (AUTO) 53 K/uL (130-430); RED CELL DISTRIBUTION WIDTH 19.5 % (9.0-15.0); WHITE BLOOD COUNT (AUTO) 5.8 K/uL (4.8-10.8)
[2019-03-06 17:38] LABS: ANION GAP 5 (5-15); CALCIUM 7.7 mg/dL (8.4-11.0); CHLORIDE 116 mmol/L (98-107); CREATININE 1.19 mg/dL (0.55-1.30); GLUCOSE 106 mg/dL (70-99); POTASSIUM 3.8 mmol/L (3.5-5.1); SODIUM SERUM 142 mmol/L (136-145); UREA NITROGEN, BLOOD 18 mg/dL (8-21)
[2019-03-06 17:40] LABS: HEMOGLOBIN 4.8 g/dL (14.0-18.0); RED BLOOD CELL COUNT(AUTO) 1.67 MIL/uL (4.2-6.2)
[2019-03-06 17:42] LABS: ALANINE AMINOTRANSFERASE 16 U/L (12-78); ALBUMIN 2.3 g/dL (3.4-4.8); ASPARTATE AMINOTRANSFERASE 26 U/L (10-37); PROTHROMBIN TIME 10.4 SECS (9.5-12.5); TOTAL BILIRUBIN 0.4 mg/dL (0.0-1.0)
[2019-03-06 17:50] LABS: BASOPHILS # (AUTO) 0.1 K/uL (0.0-0.2)
[2019-03-06] MEDS: MORPHINE 4 MG/ML INJ. SYRINGE IVP ONE ×2 (18:38→18:42)
[2019-03-06] MEDS ORDERED: NACL 0.9% 1,500 ML IV ONE (18:45)
[2019-03-06 19:26] VITALS: BP_SYST 103
[2019-03-06] MEDS ORDERED: ACETAMINOPHEN 325 MG TABLET PO PRN (19:30)
[2019-03-06 20:00] VITALS: BP_SYST 103
[2019-03-06] MEDS ORDERED: KCL 40 mEq in 100 mL (PREMIX) 0 ML IV ONE (23:11)
[2019-03-06] MEDS ORDERED: KCL 20 mEq in 100 mL (PREMIX) 100 ML IV ONE (23:13)
[2019-03-06] MEDS: DONEPEZIL HCL 5 MG TABLET (ARICEPT) PO SCH (23:24)
[2019-03-06] MEDS: ATORVASTATIN 20 MG TABLET PO SCH (23:24)
[2019-03-06] MEDS: MEMANTINE HCL 5 MG TABLET PO SCH (23:24)
[2019-03-06] MEDS: KCL 20 mEq in D5NS 1000 mL 1,000 ML IV SCH (23:25)
[2019-03-07 01:02] VITALS: BP_SYST 102
[2019-03-07 04:17] LABS: EOSINOPHILS # (AUTO) 0.3 K/uL (0.0-0.4); EOSINOPHILS % (AUTO) 6.1 % (0.0-4.0); HEMATOCRIT 23.4 % (36-54); HEMOGLOBIN 7.8 g/dL (14.0-18.0); LYMPHOCYTES # (AUTO) 1.7 K/uL (1.0-5.5); LYMPHOCYTES % (AUTO) 34.2 % (20.5-51.5); MEAN CORPUSCULAR HEMOGLOBIN 30 pg (27-31); MEAN CORPUSCULAR HGB CONC 33 % (32-36); MEAN CORPUSCULAR VOLUME 89 fL (79.0-98.0); MONOCYTES # (AUTO) 0.6 K/uL (0.0-1.0); MONOCYTES % (AUTO) 12.8 % (1.7-9.3); NEUTROPHILS # (AUTO) 2.3 K/uL (1.8-7.7); NEUTROPHILS % (AUTO) 45.9 % (40.0-70.0); RED BLOOD CELL COUNT(AUTO) 2.64 MIL/uL (4.2-6.2); RED CELL DISTRIBUTION WIDTH 15.5 % (9.0-15.0); WHITE BLOOD COUNT (AUTO) 5.1 K/uL (4.8-10.8)
[2019-03-07 04:21] LABS: PLATELET COUNT (AUTO) 43 K/uL (130-430)
[2019-03-07 04:44] LABS: ALANINE AMINOTRANSFERASE 14 U/L (12-78); ANION GAP 8 (5-15); ASPARTATE AMINOTRANSFERASE 26 U/L (10-37); CALCIUM 7.2 mg/dL (8.4-11.0); CHLORIDE 115 mmol/L (98-107); CREATININE 1.07 mg/dL (0.55-1.30); GLUCOSE 103 mg/dL (70-99); POTASSIUM 3.6 mmol/L (3.5-5.1); SODIUM SERUM 145 mmol/L (136-145); THYROID STIMULATING HORMONE 0.81 uIu/mL (0.36-3.74); UREA NITROGEN, BLOOD 17 mg/dL (8-21)
[2019-03-07 08:00] VITALS: BP_SYST 123
[2019-03-07] MEDS: KCL 20 mEq in D5NS 1000 mL 1,000 ML IV SCH ×2 (08:50→17:36)
[2019-03-07] MEDS: METOPROLOL SUCCINATE 50 MG TAB.SR.24H (TOPROL XL) PO SCH ×2 (09:00→09:21)
[2019-03-07] MEDS: DOCUSATE SODIUM 100 MG CAPSULE PO SCH (09:20)
[2019-03-07] MEDS: MEMANTINE HCL 5 MG TABLET PO SCH ×2 (09:20→21:02)
[2019-03-07] MEDS: TAMSULOSIN HCL 0.4 MG CAP PO SCH (09:20)
[2019-03-07] MEDS: FAMOTIDINE 20 MG TABLET PO SCH (09:21)
[2019-03-07 13:19] VITALS: BP_SYST 156
[2019-03-07 16:44] VITALS: BP_SYST 139
[2019-03-07] MEDS ORDERED: MAGNESIUM SULFATE 50 ML IV SCH (19:30)
[2019-03-07 20:00] VITALS: BP_SYST 122
[2019-03-07] MEDS: ATORVASTATIN 20 MG TABLET PO SCH (21:02)
[2019-03-07] MEDS: POTASSIUM CHLORIDE 20 MEQ TAB.PRT.SR PO SCH (21:02)
[2019-03-07] MEDS: DONEPEZIL HCL 5 MG TABLET (ARICEPT) PO SCH (21:02)
[2019-03-07] MEDS: METOPROLOL SUCCINATE 25 MG TAB.SR.24H (TOPROL XL) PO SCH (21:03)
[2019-03-08 00:07] VITALS: BP_SYST 109
[2019-03-08] MEDS: KCL 20 mEq in D5NS 1000 mL 1,000 ML IV SCH ×2 (05:28→18:50)
[2019-03-08 06:25] LABS: ANION GAP 9 (5-15); CALCIUM 7.4 mg/dL (8.4-11.0); CHLORIDE 113 mmol/L (98-107); CREATININE 0.89 mg/dL (0.55-1.30); GLUCOSE 97 mg/dL (70-99); POTASSIUM 4.3 mmol/L (3.5-5.1); SODIUM SERUM 143 mmol/L (136-145); UREA NITROGEN, BLOOD 15 mg/dL (8-21)
[2019-03-08 06:28] LABS: BASOPHILS # (AUTO) 0.1 K/uL (0.0-0.2); BASOPHILS % (AUTO) 1.1 % (0.0-2.0); EOSINOPHILS # (AUTO) 0.5 K/uL (0.0-0.4); HEMATOCRIT 33.2 % (36-54); HEMOGLOBIN 11.2 g/dL (14.0-18.0); LYMPHOCYTES # (AUTO) 1.4 K/uL (1.0-5.5); MEAN CORPUSCULAR HEMOGLOBIN 30 pg (27-31); MEAN CORPUSCULAR HGB CONC 34 % (32-36); MEAN CORPUSCULAR VOLUME 87 fL (79.0-98.0); MONOCYTES # (AUTO) 0.7 K/uL (0.0-1.0); MONOCYTES % (AUTO) 12.2 % (1.7-9.3); NEUTROPHILS # (AUTO) 3.2 K/uL (1.8-7.7); NEUTROPHILS % (AUTO) 54.7 % (40.0-70.0); RED CELL DISTRIBUTION WIDTH 15.3 % (9.0-15.0); WHITE BLOOD COUNT (AUTO) 5.8 K/uL (4.8-10.8)
[2019-03-08 08:00] VITALS: BP_SYST 137
[2019-03-08] MEDS: FAMOTIDINE 20 MG TABLET PO SCH (09:16)
[2019-03-08] MEDS: TAMSULOSIN HCL 0.4 MG CAP PO SCH (09:16)
[2019-03-08] MEDS: POTASSIUM CHLORIDE 20 MEQ TAB.PRT.SR PO SCH ×2 (09:16→21:51)
[2019-03-08] MEDS: DOCUSATE SODIUM 100 MG CAPSULE PO SCH (09:16)
[2019-03-08] MEDS: METOPROLOL SUCCINATE 25 MG TAB.SR.24H (TOPROL XL) PO SCH ×2 (09:18→21:48)
[2019-03-08] MEDS: MEMANTINE HCL 5 MG TABLET PO SCH ×2 (09:18→21:47)
[2019-03-08 12:10] LABS: PLATELET COUNT (AUTO) 44 K/uL (130-430)
[2019-03-08 12:38] VITALS: BP_SYST 143
[2019-03-08 16:34] VITALS: BP_SYST 139
[2019-03-08 21:20] VITALS: BP_SYST 156
[2019-03-08] MEDS: DONEPEZIL HCL 5 MG TABLET (ARICEPT) PO SCH (21:47)
[2019-03-08] MEDS: ATORVASTATIN 20 MG TABLET PO SCH (21:47)
[2019-03-09 00:57] VITALS: BP_SYST 143
[2019-03-09 08:00] VITALS: BP_SYST 165
[2019-03-09] MEDS: KCL 20 mEq in D5NS 1000 mL 1,000 ML IV SCH (09:53)
[2019-03-09] MEDS: FAMOTIDINE 20 MG TABLET PO SCH (09:57)
[2019-03-09] MEDS: METOPROLOL SUCCINATE 25 MG TAB.SR.24H (TOPROL XL) PO SCH (09:57)
[2019-03-09] MEDS: MEMANTINE HCL 5 MG TABLET PO SCH (09:57)
[2019-03-09] MEDS: DOCUSATE SODIUM 100 MG CAPSULE PO SCH (09:57)
[2019-03-09] MEDS: TAMSULOSIN HCL 0.4 MG CAP PO SCH (09:57)
[2019-03-09] MEDS: POTASSIUM CHLORIDE 20 MEQ TAB.PRT.SR PO SCH (09:57)
[2019-03-09 10:02] LABS: BILIRUBIN,URINE NEGATIVE (NEGATIVE); BLOOD, URINE 3+ (NEGATIVE); CLARITY/URINE SL CLOUDY (CLEAR); COLOR,URINE YELLOW (YELLOW); GLUCOSE,URINE NEGATIVE (NEGATIVE); KETONES,URINE NEGATIVE (NEGATIVE); LEUKOCYTE ESTERASE ,URINE NEGATIVE (NEGATIVE); NITRITE, URINE NEGATIVE (NEGATIVE); PROTEIN URINE NEGATIVE (NEGATIVE); UROBILINOGEN,URINE 0.2 (0.2-1.0)
[2019-03-09 10:44] LABS: BACTERIA,URINE RARE /HPF (None Seen); RBC,URINE >100 /HPF (0-3); WBC,URINE 0-3 /HPF (0-3)
[2019-03-09 13:23] LABS: NEUTROPHILS % (AUTO) 44.4 % (40.0-70.0)
[2019-03-09 13:36] VITALS: BP_SYST 114
[2019-03-09 15:41] VITALS: BP_SYST 115
[2019-03-09 16:03] LABS: HEMOGLOBIN 10.6 g/dL (14.0-18.0); MEAN CORPUSCULAR HEMOGLOBIN 29 pg (27-31); MEAN CORPUSCULAR HGB CONC 33 % (32-36); MEAN CORPUSCULAR VOLUME 88 fL (79.0-98.0); PLATELET COUNT (AUTO) 53 K/uL (130-430); RED BLOOD CELL COUNT(AUTO) 3.62 MIL/uL (4.2-6.2); RED CELL DISTRIBUTION WIDTH 15.6 % (9.0-15.0); WHITE BLOOD COUNT (AUTO) 6.6 K/uL (4.8-10.8)
[2019-03-09 16:13] VITALS: BP_SYST 115
[2019-03-09 17:00] LABS: BAND % (MANUAL) 8 % (0-6); BASOPHILS % (MANUAL) 0 % (0-2); EOSINOPHILS % (MANUAL) 8 % (0-7); LYMPHOCYTES % (MANUAL) 24 % (20-46); MONOCYTES % (MANUAL) 8 % (0-11)
== END 2019-03-09 20:00 | DRG 840 ==
LOC: SED 16:27 → STU 17:55 → SMU 03-08 16:52
PROVIDERS: ADMIT Family Medicine; ATTEND Family Medicine
PROC: 30233N1 Transfusion of Nonautologous Red Blood Cells into Peripheral Vein, Percutaneous Approach (ICD-10-PCS; principal; 2019-03-07)
DX: C85.90 Non-Hodgkin lymphoma, unspecified, unspecified site (principal); E43 Unspecified severe protein-calorie malnutrition; D63.0 Anemia in neoplastic disease; H54.62 Unqualified visual loss, left eye, normal vision right eye; F02.80 Dementia in other diseases classified elsewhere, unspecified severity, without behavioral disturbance, psychotic disturbance, mood disturbance, and anxiety; D69.6 Thrombocytopenia, unspecified; G30.9 Alzheimer's disease, unspecified; I10 Essential (primary) hypertension; I35.0 Nonrheumatic aortic (valve) stenosis; R31.9 Hematuria, unspecified; I95.9 Hypotension, unspecified; N40.1 Benign prostatic hyperplasia with lower urinary tract symptoms; R33.8 Other retention of urine; Z79.899 Other long term (current) drug therapy; Z87.440 Personal history of urinary (tract) infections; Z95.0 Presence of cardiac pacemaker; I69.393 Ataxia following cerebral infarction; Z97.0 Presence of artificial eye; Z74.01 Bed confinement status
CPT/HCPCS: 36415; 71045; 80048; 80053; 81000-TC; 82550-TC; 83605; 83735-TC; 83880; 84443-TC; 84484; 85007; 85025; 85027; 85610-TC; 85730-TC; 86886; 86900; 86901; 86920; 87040-TC; 87081; 93005; 96360; 99285; G0378; J2270; J3475; J3480; J7040; J7042; P9021